=== PATIENT | male | born 1990 | race Caucasian/White ===

== ENCOUNTER 2017-06-09 04:41 | Emergency (ER) | payer SELFPAY ==
[~2017-06-09] VITALS: Ht 162.6 cm; Wt 83.5 kg
[2017-06-09 04:45] VITALS: Ht 162.6 cm; Wt 83.5 kg
[2017-06-09] MEDS ORDERED: DIPHTH/TET/ACEL PERTUSS (ADULT) 0.5 ML VIAL IM* ONE (06:30)
[2017-06-09] MEDS ORDERED: LIDOCAINE 1% (MDV) 20 ML INJ SC ONE (06:30)
--- NOTE | 2017-06-09 06:30 | ERD ---
ER Documentation Chief Complaint Chief Complaint Laceration HPI 27-year-old male who is right-hand dominant presents status post fall complaining of a right hand laceration that happened approximately 2-3 hours ago. This patient states that he was riding his skateboard and fell onto a glass bottle causing a laceration onto the base of the second digit. He has pain to second and third digits, described as achy, worse in movement, better at rest. He has no foreign body sensation. He has no paresthesias, weakness. He does not recall when his last tetanus shot was. ROS All systems reviewed and are negative except as per history of present illness. Medications Home Meds Active Scripts Ibuprofen* (Motrin*) 600 Mg Tab, 600 MG PO Q6, #30 TAB Prov:HELEN VAUGHAN PA-C 06/09/17 Cephalexin* (Keflex*) 500 Mg Capsule, 500 MG PO QID for 7 Days, CAP Prov:HELEN VAUGHAN PA-C 06/09/17 Allergies Allergies: Coded Allergies: No Known Allergy (Unverified , 06/09/17) PMhx/Soc Medical and Surgical Hx: pt denies Medical Hx, pt denies Surgical Hx History of Surgery: No Anesthesia Reaction: No Hx Neurological Disorder: No Hx Respiratory Disorders: No Hx Cardiac Disorders: No Hx Psychiatric Problems: No Hx Miscellaneous Medical Probl: No Hx Alcohol Use: Yes (social ) Hx Substance Use: Yes (marijuana) Hx Tobacco Use: No Smoking Status: Current every day smoker Physical Exam Vitals Vital Signs Date Time Temp Pulse Resp B/P Pulse Ox O2 Delivery O2 Flow Rate FiO2 06/09/17 04:45 98.2 80 18 126/80 100 Physical Exam General: Well-developed, well-nourished. The patient appears in no acute distress. HEENT: Head is normocephalic, atraumatic. No scleral icterus. Neck: Supple. Nontender. Lungs: Clear to auscultation. Normal air movement. Heart: Regular rate and rhythm. S1 and S2 are normal. No murmurs, gallops, or rubs. Abdomen: Nondistended. Extremities: There is a 3 cm laceration at the base of the second digit of the right hand, there is no active bleeding, no foreign body, there is no tendon visible. There is tenderness and swelling over the second and third metacarpals. He has full range of motion at DIP, PIP and MCP joint all fingers. Sensation is distally intact. Radial, ulnar, median nerves intact. There are no other lacerations, no abrasions. No tenderness to the metacarpals. Neurologic: Alert and oriented 3. No focal deficits. Normal speech and gait. Skin: Normal turgor. No rash or lesions. Results 24 hrs Current Medications Medications (Trade) Dose Ordered Sig/Curt Route PRN Reason Start Time Stop Time Status Last Admin Dose Admin Lidocaine (Xylocaine 1% (Mdv) 20 ml) 20 ml ONCE ONCE SC 06/09/17 06:30 06/09/17 06:31 DC Diphtheria/ Tetanus/Acell Pertussis (Adacel) 0.5 ml ONCE ONCE IM* 06/09/17 06:30 06/09/17 06:31 DC 06/09/17 06:16 DIAGNOSTIC IMAGING REPORT Patient: CHANNING CROWLEY : 1990 Age: 27 Sex: M MR #: [id number] DOS: 06/09/17 0753 Ordering MD: HELEN VAUGHAN PA-C Location: [facility] Room/Bed: PROCEDURE: RIGHT HAND XR. CLINICAL INDICATION: Status post irrigation TECHNIQUE: 3 views of the right hand were obtained. COMPARISON: No prior studies are available for comparison. FINDINGS: There is no evidence of acute fracture or dislocation of the right hand. Bony mineralization and alignment are unremarkable. Joint spaces are preserved. There is no significant soft tissue swelling. IMPRESSION: 1. No evidence of acute fracture dislocation of the right hand. 2. Previously noted foreign body not visualized on current study. RPTAT: EE Physician Arvind Date Time Electronically viewed and signed by Physician Arvind on 06/09/2017 08:20 DIAGNOSTIC IMAGING REPORT Patient: CHANNING CROWLEY : 1990 Age: 27 Sex: M MR #: [id number] DOS: 06/09/17 0610 Ordering MD: HELEN VAUGHAN PA-C Location: [facility] Room/Bed: PROCEDURE: XR Hand. CLINICAL INDICATION: Laceration on second digit. Fell on glass. Pain. TECHNIQUE: Three views of the right hand were obtained. COMPARISON: No prior studies are available for comparison. FINDINGS: The bones of the hand appear intact, with no evidence of fracture, dislocation, or subluxation. The joint spaces are preserved. Bone mineralization is normal. Swelling and edema of the right second digit soft tissues is noted. Overlapping bandaging is seen as well which limits optimum evaluation. Tiny linear foreign body is seen in the soft tissue region between the right second and third metacarpal bones. IMPRESSION: 1. Tiny thin linear shard of glass in the mid right hand between the right second and third metacarpal bones. Results discussed with LEYLA Villarreal in the ER at 7:50 a.m. on 06/09/2017. RPTAT: PP .Champ Perdomo MD, MD Date Time Electronically viewed and signed by .Champ Perdomo MD, on 06/09/2017 07:16 .B/ CC: HELEN VAUGHAN PA-C Procedures/MDM ED course: Patient had irrigation of the wound, he was given tetanus update. Laceration Repair by me: Was verbally consented Anesthesia: 1% lidocaine locally Location: Second digit Tendon/Joint/Nerves: No injury Foreign body: None detected after copious irrigation and exploration Technique: Simple Interrupted Sutures using 4-0 ethilon 7 Complexity: No subcutaneous sutures/mucosal repair/ edge excision Post Closure Length: 3 cm Patient's bleeding was easily controlled in the department and there is no indication of anemia. No evidence of compartment syndrome, neurologic injury, vascular injury, open joint, tendon laceration, or foreign body. Patient is appropriate for outpatient follow up. 48 hour wound check. Scar minimization instructions given. Echo decision makin-year-old male fell off skateboard onto a piece of glass complaining of right hand pain with a laceration, there is a note of a possible foreign body that could have been nourished thin linear piece of glass by the third metacarpal. However the patient does not have any pain there, he does not have any lacerations around that area and is very unlikely that there is a piece of glass that could have traveled from the base of the second digit down to that region. We irrigated the laceration, and repeated the x-ray and there is no evidence of a foreign body. It was likely artifact that was seen on the x-ray. Patient does not have any symptoms there. Please note that his hand was bandaged and taped heavily on the first x-ray. Laceration was closed without any complications, patient will be covered with antibiotics, advised to take ibuprofen for pain. Recheck within 2 days and suture removal advised in 7- 10 days. No evidence of any fracture, tendon or ligamental injury. Case was reviewed with Dr. Nguyen who agrees with assessment, care and plan. Departure Diagnosis: Primary Impression: Laceration Condition: HELEN Benavidez PA-C Jun 09, 2017 06:30
--- NOTE | 2017-06-09 07:16 | RADRPT ---
PROCEDURE: XR Hand. CLINICAL INDICATION: Laceration on second digit. Fell on glass. Pain. TECHNIQUE: Three views of the right hand were obtained. COMPARISON: No prior studies are available for comparison. FINDINGS: The bones of the hand appear intact, with no evidence of fracture, dislocation, or subluxation. The joint spaces are preserved. Bone mineralization is normal. Swelling and edema of the right second di git soft tissues is noted. Overlapping bandaging is seen as well which limits optimum evaluation. Ti ny linear foreign body is seen in the soft tissue region between the right second and third metacarp al bones. IMPRESSION: 1. Tiny thin linear shard of glass in the mid right hand between the right second and third metacar pal bones. Results discussed with LEYLA Villarreal in the ER at 7:50 a.m. on 06/09/2017. RPTAT: PP .Champ Perdomo MD, Date Time Electronically viewed and signed by .Champ Perdomo MD, on 06/09/2017 07:16 .B/
[2017-06-09] MEDS ORDERED: CEPH-443 PO (08:05)
[2017-06-09] MEDS ORDERED: IBUP-1542 PO (08:05)
--- NOTE | 2017-06-09 08:20 | RADRPT ---
PROCEDURE: RIGHT HAND XR. CLINICAL INDICATION: Status post irrigation TECHNIQUE: 3 views of the right hand were obtained. COMPARISON: No prior studies are available for comparison. FINDINGS: There is no evidence of acute fracture or dislocation of the right hand. Bony mineralization and ali gnment are unremarkable. Joint spaces are preserved. There is no significant soft tissue swelling. IMPRESSION: 1. No evidence of acute fracture dislocation of the right hand. 2. Previously noted foreign body not visualized on current study. RPTAT: EE Physician Arvind Date Time Electronically viewed and signed by Physician Arvind on 06/09/2017 08:20 GERMÁN/
== END 2017-06-09 08:40 | disposition home or self-care (01) ==
LOC: FTE 04:41
DX: S61.210A Laceration without foreign body of right index finger without damage to nail, initial encounter (principal); F17.210 Nicotine dependence, cigarettes, uncomplicated; W25.XXXA Contact with sharp glass, initial encounter; Y92.9 Unspecified place or not applicable
CPT/HCPCS: 90471; 90715